=== PATIENT | female | born 1980 | race African-American/Black ===

== ENCOUNTER → 2016-06-04 | Outpatient (REF) | payer OTHER ==
[~2016-06-04] MED LIST: PRED20TA PO; ZITHTAB PO
== END ==
LOC: M SFHCLERA 12:23
PROVIDERS: ATTEND Physician Assistant
DX: J02.9 Acute pharyngitis, unspecified (principal)

== ENCOUNTER 2016-06-08 06:06 | Emergency (ER) | payer OTHER ==
[~2016-06-08] VITALS: Ht 157.5 cm; Wt 60.8 kg
[2016-06-08] MEDS ORDERED: dexameTHASONE 20 MG/5 ML VIAL (J1100) IM ONE (07:00)
[2016-06-08] MEDS ORDERED: IPRATROPIUM 0.5MG/ALBUTEROL 2.5MG INH SOL UD 3ML (DUONEB)(J7620) NEB ONE (07:00)
--- NOTE | 2016-06-08 07:44 | REP ---
Clinical: Cough . Comparison: None . Technique: PA and lateral. Findings: The mediastinum and cardiac silhouette are normal. The lung brice are clear and without acute consolidation, effusion, or pneumothorax. The skeletal structures are intact and normal. Impression: 1. No acute cardiopulmonary process. Signed by Kwaku Vila MD 06/08/2016 07:35 A
[2016-06-08] MEDS ORDERED: PRED20TA PO (08:08)
[2016-06-08] MEDS ORDERED: ZITHTAB PO (08:09)
[2016-06-08] MEDS ORDERED: ALBUTEROL 90 MCG/ACT 8GM HFA INHALER INH ONE (08:15)
[2016-06-08 08:32] VITALS: BP 120/73
== END 2016-06-08 08:34 | disposition home or self-care (01) ==
LOC: M ED 06:50
DX: J20.9 Acute bronchitis, unspecified (principal)
CPT/HCPCS: 71020; 94640; 96372; 99282; J1100

== ENCOUNTER → 2016-06-24 | Outpatient (CLI) | payer OTHER ==
--- NOTE | 2016-06-24 17:55 | REP ---
Focused left breast sonography: History: Possible mastitis left breast. Follow up sonography recommended in October 08, 2015. Findings: Retroareolar left breast sonography is performed. Somewhat heterogeneous fibroglandular background echotexture is seen. No mass, cyst or abscess is seen. Impression: BIRADS category 1 negative focused left breast sonography. Signed by Lalito Garza MD 06/25/2016 08:04 A
== END ==
LOC: M RAD 14:23
PROVIDERS: ATTEND Family Medicine
DX: Z86.018 Personal history of other benign neoplasm (principal)

== ENCOUNTER 2017-02-15 16:35 | Emergency (ER) | payer OTHER ==
[~2017-02-15] VITALS: Ht 157.5 cm; Wt 61.4 kg
[2017-02-15 16:35] VITALS: BP 135/85
[2017-02-15] MEDS ORDERED: MULT1TAB10 PO (16:47)
== END 2017-02-15 18:31 | disposition left against medical advice (07) ==
LOC: M ED 16:35
DX: M54.9 Dorsalgia, unspecified (principal); Z53.21 Procedure and treatment not carried out due to patient leaving prior to being seen by health care provider